=== PATIENT | female | born 1990 | race Caucasian/White ===

== ENCOUNTER 2016-11-14 12:43 | Observation (INO) | payer MEDICAID ==
[~2016-11-14 12:43] MED LIST: ABILIFY10 MG; DOCUSATE CALCI100 MG; EFFEXOR37.5 MG; ELIMITE60 GM TP; KLONOPIN1 M1 PO; LAMICTAL100 MG; LEVOTHROID50 MCG; LOW-OGESTREL; MELATIN3 MG; MOTRIN600 MG PO; NORCO 5-325 TA1 EACH PO; PROVENTIL HFA6.7 G1 IH; TRIAMCINOLONE A15 GM TP; ZOFRAN ODT4 MG PO; ZOLOFT50 MG PO
[2016-11-14] MEDS ORDERED: PRENA1 CHEW TA1.4 M1 PO (13:18)
[2016-11-14 13:32] LABS: URINE BILIRUBIN NEGATIVE (NEG); URINE BLOOD NEGATIVE (NEG); URINE GLUCOSE (UA) NEGATIVE (NEG); URINE KETONE NEGATIVE (NEG); URINE LEUKOCYTE ESTERASE POSITIVE (NEG); URINE NITRITE NEGATIVE (NEG); URINE PROTEIN NEGATIVE (NEG); URINE SPECIFIC GRAVITY 1.025 (1.003-1.030)
[2016-11-14 13:38] LABS: URINE APPEARANCE CLEAR; URINE COLOR YELLOW
[2016-11-14 13:51] LABS: URINE BACTERIA 1+; URINE RBC 0-2 /[HPF] (0-5); URINE WBC 0-2 /[HPF] (0-5)
[2016-11-14 14:07] LABS: BASO % 0.1 % (0-2); EOS % 0.3 % (0-7); HCT-HEMATOCRIT 31.2 % (34.0-49.0); HGB-HEMOGLOBIN 10.8 gm/dl (12.0-15.5); IMMATURE GRANULOCYTES ABSOLUTE 0.01 tho/cmm (0-0.03); IMMATURE GRANULOCYTES PERCENT 0.1 % (0-0.3); LYMPH % 21.7 % (20-45); LYMPH ABSOLUTE COUNT 1.6 tho/cmm (0.8-4.5); MCH (MEAN CORPUSCULAR HGB) 32.4 pg (28.0-32.0); MCHC MEAN CORPUSCULAR HGB CONC 34.6 % (32.0-36.0); MCV (MEAN CELL VOLUME) 93.7 fl (82.0-96.0); MEAN PLATELET VOLUME 9.7 cmc (9.4-12.4); MONO % 7.3 % (0-12); MONOCYTE ABSOLUTE COUNT 0.6 tho/cmm (0.0-1.2); NEUTROPHIL ABSOLUTE COUNT 5.3 tho/cmm (1.6-8.0); NEUTROPHIL-AUTOMATED 5.3 tho/cmm (1.6-8.0); NEUTROPHILS % 70.5 % (40-80); PLATELET COUNT 164 tho/cmm (150-450); RED BLOOD COUNT 3.33 mil/cmm (4.00-5.20); RED CELL DISTRIBUTION WIDTH 13.9 % (12.4-16.4); WHITE BLOOD COUNT 7.6 tho/cmm (4.0-10.0)
[2016-12-28] MEDS ORDERED: PRENA1 CHEW TA1.4 M1 (14:55)
[2017-01-26] MEDS ORDERED: PROAIR HFA8.5 GM (13:55)
[2017-01-30] MEDS ORDERED: IBUPROFEN800 M1 PO (09:52)
[2017-01-30] MEDS ORDERED: PERCOCET 5-3251 EACH PO (09:53)
== END 2016-11-14 16:10 ==
LOC: LDR 12:43
PROVIDERS: ADMIT Obstetrics & Gynecology
DX: O23.43 Unspecified infection of urinary tract in pregnancy, third trimester (principal); Z3A.28 28 weeks gestation of pregnancy; Z79.899 Other long term (current) drug therapy; Z88.5 Allergy status to narcotic agent; Z91.048 Other nonmedicinal substance allergy status; Z90.89 Acquired absence of other organs; Z98.890 Other specified postprocedural states